=== PATIENT | female | born 1985 | race Caucasian/White ===

== ENCOUNTER → 2016-08-28 | Outpatient (CLI) | payer OTHER ==
[~2016-08-28] MED LIST: CYCL10TA6 PO; FLUO20CA35 PO; GABA-112 PO; METO1TAB55 PO; PRENTAB26 PO
--- NOTE | 2016-08-28 09:27 | DIAGNOSTIC IMAGING REPORT ---
MRI OF THE LUMBAR SPINE WITHOUT CONTRAST CLINICAL HISTORY: Lumbar radiculopathy. COMPARISON STUDY: Lumbar spine CT December 18, 2007. TECHNIQUE: Utilizing a 0.7 Tiffanie open magnet and dedicated coil, multiplanar, multiecho imaging of the lumbar spine was performed without IV contrast. FINDINGS: For purposes of numbering on this exam, the L5-S1 disc space is assigned to axial image 27 of 30. There is a transitional vertebra at the lumbosacral junction which is designated as L5 on this exam. This is partially sacralized. Vertebral body heights are maintained. There is no marrow replacement. The conus terminates at the upper L1 level. Paravertebral soft tissues are unremarkable. No intracanalicular mass or fluid collection is present. L1-2: There is minimal disc bulge, eccentric to the right. The central canal and neural foramen are patent. L2-3: There is minimal disc bulge. There is a central annular tear. The central canal and neural foramen are patent. L3-4: There is minimal disc bulge. The central canal and neural foramen are patent. L4-5: There is minimal disc bulge. The central canal and neural foramen are patent. L5-S1: The central canal and neural foramen are patent. IMPRESSION: 1. Mild multilevel degenerative disc disease of the lumbar spine. Several mild disc bulges with no significant central canal or neural foraminal stenosis. 2. Transitional vertebra at the lumbosacral junction, as described above. Electronically signed by: Momo Crabtree M.D. 08/28/2016 9:25 AM Dictated Date/Time: 08/28/2016 9:17 AM
== END | disposition home or self-care (01) ==
LOC: C.OPENMRI 07:45
PROVIDERS: ATTEND Anesthesiology
DX: M54.16 Radiculopathy, lumbar region (principal)

== ENCOUNTER → 2016-10-09 | Outpatient (CLI) | payer OTHER ==
[2016-10-09 16:49] LABS: URINE APPEARANCE CLOUDY (CLEAR); URINE BILIRUBIN NEG (NEG); URINE COLOR YELLOW; URINE NITRITE NEG (NEG); URINE PH 7.5 (4.5-7.5); UROBILINOGEN NEG (NEG)
[2016-10-09 17:12] LABS: MANUAL MICROSCOPIC REQUIRED? NO; REVIEW REQ? NO
== END | disposition home or self-care (01) ==
LOC: C.LABSPEC 15:56
PROVIDERS: ATTEND Obstetrics & Gynecology
DX: O99.330 Smoking (tobacco) complicating pregnancy, unspecified trimester (principal)

== ENCOUNTER 2016-10-15 16:55 | Emergency (ER) | payer OTHER ==
[~2016-10-15] VITALS: Ht 157.5 cm; Wt 118.1 kg
[~2016-10-15 16:55] MED LIST changes: -METO1TAB55 PO; -PRENTAB26 PO
[2016-10-15 17:03] VITALS: TEMP 36.8; Ht 157.5 cm; Wt 118.1 kg
[2016-10-15] MEDS ORDERED: SODIUM CHLORIDE 0.9% 1000ML 1,000 ML IV STA (17:56)
[2016-10-15] MEDS ORDERED: METOCLOPRAMIDE HCL INJ 5 MG/ML 2 ML VIAL IV STA (17:56)
[2016-10-15 18:23] LABS: BASO % 0.2 %; BASO ABS # 0.02 K/uL (0-0.2); COMPLETE YES; EOS % 2.8 %; HEMATOCRIT 36.3 % (37-47); IG% 0.2 %; LYMPH % 21.7 %; LYMPH ABS # 2.29 K/uL (1.2-3.4); MEAN CELL VOLUME 82.1 fL (80-100); MEAN CORPUSCULAR HEMOGLOBIN 28.7 pg (25-34); MEAN PLATELET VOLUME 10.4 fL (7.4-10.4); MONO % 8.6 %; NEUT % 66.5 %; PLATELET COUNT 224 K/uL (130-400); RED BLOOD COUNT 4.42 M/uL (4.2-5.4); WHITE BLOOD COUNT 10.54 K/uL (4.8-10.8)
[2016-10-15 18:33] LABS: URINE APPEARANCE CLEAR (CLEAR); URINE BILIRUBIN NEG (NEG); URINE COLOR YELLOW; URINE EPITHELIAL CELL AUTO >30 /lpf (0-5); URINE NITRITE NEG (NEG); URINE PH 5.5 (4.5-7.5); UROBILINOGEN NEG (NEG)
[2016-10-15 18:35] LABS: MANUAL MICROSCOPIC REQUIRED? NO; REVIEW REQ? YES
[2016-10-15 18:42] LABS: BLOOD UREA NITROGEN 7 mg/dl (7-18); CREATININE 0.64 mg/dl (0.60-1.20); GLUCOSE 63 mg/dl (70-99)
[2016-10-15 18:43] LABS: ALT/SGPT 22 U/L (12-78); BUN/CREATININE RATIO 10.3 (10-20); CARBON DIOXIDE 24 mmol/L (21-32); CHLORIDE 105 mmol/L (98-107); POTASSIUM 3.8 mmol/L (3.5-5.1); SODIUM 139 mmol/L (136-145)
[2016-10-15 18:45] LABS: ALKALINE PHOSPHATASE 41 U/L (45-117); AST/SGOT 12 U/L (15-37)
--- NOTE | 2016-10-15 19:52 | DIAGNOSTIC IMAGING REPORT ---
ULTRASOUND OF THE PELVIS CLINICAL HISTORY: Pelvic pain. . Nausea. Dizziness. COMPARISON STUDY: Pelvic CT dated 12/18/2007. TECHNIQUE: Real-time, grayscale, and color flow sonography of the pelvis is performed both transabdominally and endovaginally. Images are reviewed in the transverse and longitudinal planes. FINDINGS: Uterus: The gravid uterus is normal in size and echotexture, measuring approximately 8.5 cm in length. Gestation: There is a single live uterine gestation with an estimated heart rate of 166 bpm. The crown-rump length measures 2.96 cm, corresponding to an estimated age of 9 weeks 6 days. Ovaries: The ovaries are normal in size and morphology. The right ovary measures 1.5 x 2.1 x 1.7 cm and the left ovary measures 2.7 x 1.8 x 2.8 cm. A dominant follicle is noted on the left. Normal Doppler waveforms are shown within both ovaries. Pelvis: There is trace free fluid in the cul-de-sac. No concerning adnexal lesion is seen. IMPRESSION: 1. There is a single live uterine gestation with an estimated age of 9 weeks 6 days by crown-rump length measurement. 2. The ovaries are normal in appearance. 3. There is trace nonspecific free fluid in the cul-de-sac. Electronically signed by: Brayan Wilkins M.D. 10/15/2016 7:51 PM Dictated Date/Time: 10/15/2016 7:46 PM
[2016-10-15 20:06] VITALS: BP 125/72; PULSE 65; O2SAT 99
[2016-10-15] MEDS ORDERED: METO1TAB55 PO (21:09)
--- NOTE | 2016-10-15 23:55 | EMERGENCY ROOM VISIT NOTE ---
History Report prepared by Christiane: Sinai Salas Under the Supervision of: Dr. Corrina Leyva D.O. First contact with patient: 17:08 Chief Complaint: ILLNESS Stated Complaint: DIZZY, ABD PAIN, NAUSEA, HEADACHE- 10WKS History of Present Illness The patient is a 31 year old female who presents to the Emergency Room with complaints of persistent left abdominal pain for the last 7 days. She describes the pain as cramping. She has also been experiencing nausea. She has been vomiting for the past 3 days. She is dizzy and states that it feels like the room is spinning. She denies any fever, diarrhea, vaginal bleeding or discharge. She is 10 weeks and her LNMP was on Aug 04. She had a positive home test and was due for an OB appointment today which was cancelled because of the weather. She had spotting and cramping in her lower abdomen earlier in the . She is currently being treated for a Group B strep infection in the urine with a 7 day course of antibiotics. Today was the 4th day of her antibiotics. Source of History: patient Onset: 7 days ago Position: abdomen (left) Quality: cramping Timing: other (persistent) Associated Symptoms: + nausea, + vomiting, No diarrhea, No fevers Note: Pt denies vaginal bleeding or discharge. Review of Systems See HPI for pertinent positives & negatives. A total of 10 systems reviewed and were otherwise negative. Past Medical & Surgical Medical Problems: (1) Traumatic brain injury Family History Blood clots Cancer Diabetes mellitus Hypertension Kidney stones Social History Smoking Status: Former Smoker Alcohol Use: none Marital Status: single Occupation Status: employed Current/Historical Medications Scheduled Metoclopramide Hcl (Reglan), 1 TAB PO TID Allergies Coded Allergies: No Known Allergies (Verified , 10/15/16) Physical Exam Vital Signs Date Time Temp Pulse Resp B/P Pulse Ox O2 Delivery O2 Flow Rate FiO2 10/15/16 20:06 65 14 125/72 99 Room Air 10/15/16 19:00 81 20 98 Room Air 10/15/16 17:03 36.8 74 18 128/81 98 Room Air Physical Exam HEENT: Head - normocephalic and atraumatic Pupils are equal, round, and reactive to light. Extraocular eye muscles are intact, and sclera are anicteric. Nose - moist nasal mucosa without discharge. Mouth - moist buccal mucosa. Oropharynx is nonerythematous and there is no tonsillar exudate or edema noted. Neck: Supple; no JVD, nuchal rigidity, cervical lymphadenopathy. Heart: Regular rate and rhythm. There is a normal S1 and S2 with no murmurs, clicks, or gallops appreciated. Lungs: Clear to auscultation bilaterally with no wheezes, rales, or rhonchi. Abdomen: Soft, tenderness to palpation of LLQ and left of umbilicus, nondistended, with good bowel sounds. There are no palpable pulsatile masses or hepatosplenomegaly. There is no guarding, rigidity, or rebound noted. Extremities: No evidence of cyanosis, clubbing, or edema. There are easily palpable peripheral pulses. Skin: warm and dry with good turgor and no rashes. Medical Decision & Procedures ER Provider Diagnostic Interpretation: Radiology results as stated below per my review and the radiologist's interpretation: ULTRASOUND OF THE PELVIS CLINICAL HISTORY: Pelvic pain. . Nausea. Dizziness. COMPARISON STUDY: Pelvic CT dated 12/18/2007. TECHNIQUE: Real-time, grayscale, and color flow sonography of the pelvis is performed both transabdominally and endovaginally. Images are reviewed in the transverse and longitudinal planes. FINDINGS: Uterus: The gravid uterus is normal in size and echotexture, measuring approximately 8.5 cm in length. Gestation: There is a single live uterine gestation with an estimated heart rate of 166 bpm. The crown-rump length measures 2.96 cm, corresponding to an estimated age of 9 weeks 6 days. Ovaries: The ovaries are normal in size and morphology. The right ovary measures 1.5 x 2.1 x 1.7 cm and the left ovary measures 2.7 x 1.8 x 2.8 cm. A dominant follicle is noted on the left. Normal Doppler waveforms are shown within both ovaries. Pelvis: There is trace free fluid in the cul-de-sac. No concerning adnexal lesion is seen. IMPRESSION: 1. There is a single live uterine gestation with an estimated age of 9 weeks 6 days by crown-rump length measurement. 2. The ovaries are normal in appearance. 3. There is trace nonspecific free fluid in the cul-de-sac. Electronically signed by: Brayan Wilkins M.D. 10/15/2016 7:51 PM Dictated Date/Time: 10/15/2016 7:46 PM Laboratory Results 10/15/16 18:10 Red Blood Count 4.42, Mean Corpuscular Volume 82.1, Mean Corpuscular Hemoglobin 28.7, Mean Corpuscular Hemoglobin Concent 35.0, Mean Platelet Volume 10.4, Neutrophils (%) (Auto) 66.5, Lymphocytes (%) (Auto) 21.7, Monocytes (%) (Auto) 8.6, Eosinophils (%) (Auto) 2.8, Basophils (%) (Auto) 0.2, Neutrophils # (Auto) 7.01, Lymphocytes # (Auto) 2.29, Monocytes # (Auto) 0.91, Eosinophils # (Auto) 0.29, Basophils # (Auto) 0.02 10/15/16 18:10 Test 10/15/16 18:05 10/15/16 18:10 Urine Color YELLOW Urine Appearance CLEAR (CLEAR) Urine pH 5.5 (4.5-7.5) Urine Specific [place] 1.020 (1.000-1.030) Urine Protein NEG (NEG) Urine Glucose (UA) NEG (NEG) Urine Ketones NEG (NEG) Urine Occult Blood NEG (NEG) Urine Nitrite NEG (NEG) Urine Bilirubin NEG (NEG) Urine Urobilinogen NEG (NEG) Urine Leukocyte Esterase TRACE (NEG) Urine WBC (Auto) 1-5 /hpf (0-5) Urine RBC (Auto) 0-4 /hpf (0-4) Urine Hyaline Casts (Auto) 1-5 /lpf (0-5) Urine Epithelial Cells (Auto) >30 /lpf (0-5) Urine Bacteria (Auto) NEG (NEG) Urine Crystals CALCIUM OXALATE (NONE White Blood Count 10.54 K/uL (4.8-10.8) Red Blood Count 4.42 M/uL (4.2-5.4) Hemoglobin 12.7 g/dL (12.0-16.0) Hematocrit 36.3 % (37-47) Mean Corpuscular Volume 82.1 fL (80-100) Mean Corpuscular Hemoglobin 28.7 pg (25-34) Mean Corpuscular Hemoglobin Concent 35.0 g/dl (32-36) Platelet Count 224 K/uL (130-400) Mean Platelet Volume 10.4 fL (7.4-10.4) Neutrophils (%) (Auto) 66.5 % Lymphocytes (%) (Auto) 21.7 % Monocytes (%) (Auto) 8.6 % Eosinophils (%) (Auto) 2.8 % Basophils (%) (Auto) 0.2 % Neutrophils # (Auto) 7.01 K/uL (1.4-6.5) Lymphocytes # (Auto) 2.29 K/uL (1.2-3.4) Monocytes # (Auto) 0.91 K/uL (0.11-0.59) Eosinophils # (Auto) 0.29 K/uL (0-0.5) Basophils # (Auto) 0.02 K/uL (0-0.2) RDW Standard Deviation 40.4 fL (36.4-46.3) RDW Coefficient of Variation 13.3 % (11.5-14.5) Immature Granulocyte % (Auto) 0.2 % Immature Granulocyte # (Auto) 0.02 K/uL (0.00-0.02) Anion Gap 10.0 mmol/L (3-11) Est Creatinine Clear Calc Drug Dose 158.3 ml/min Estimated GFR () 139.8 Estimated GFR (Non- 120.6 BUN/Creatinine Ratio 10.3 (10-20) Calcium Level 10.0 mg/dl (8.5-10.1) Total Bilirubin 0.2 mg/dl (0.2-1) Direct Bilirubin < 0.1 mg/dl (0-0.2) Aspartate Amino Transf (AST/SGOT) 12 U/L (15-37) Alanine Aminotransferase (ALT/SGPT) 22 U/L (12-78) Alkaline Phosphatase 41 U/L (45-117) Total Protein 8.0 gm/dl (6.4-8.2) Albumin 3.7 gm/dl (3.4-5.0) Human Chorionic Gonadotropin, Quant 32006 mIU/mL Laboratory results per my review. Medications Administered Medications (Trade) Dose Ordered Sig/Tc Route Start Time Stop Time Status Last Admin Dose Admin Sodium Chloride (Nss 1000ml) 1,000 ml @ 999 mls/hr Q1H1M STAT IV 10/15/16 17:56 10/15/16 18:56 DC 10/15/16 18:10 999 MLS/HR Metoclopramide HCl (Reglan Inj) 10 mg NOW STAT IV 10/15/16 17:56 10/15/16 17:59 DC 10/15/16 18:10 10 MG Procedure Medications: NSS 1000 ml @ 999 mls/hr IV, Reglan Inj 10 mg IV. ED Course 1752: The patient was evaluated in room B11. A complete history and physical examination were performed. Nursing notes and previous electronic medical records were reviewed. IV lock was established and labs were drawn as above. 1755: NSS 1000 ml @ 999 mls/hr IV, Reglan Inj 10 mg IV. The patient went for a pelvic ultrasound as described above. 2028: I reevaluated the patient. She feels better. She was able to drink liquids without difficulty. I discussed the results and treatment plan with her. She verbalized understanding and agreement. She will be discharged home. Medical Decision The patient is a 31 year old female who presents to the ED with left abdominal pain. Differential diagnosis includes normal , ectopic , diverticulitis, ureteral colic, hyperemesis gravidarum. Labs: Normal WBC count, stable H & H, glucose 63, normal renal function, normal LFTs, quantitative HCG 24143, urinalysis had calcium oxylate crystals, no blood , trace leukocyte esterase. The patient felt much better after receiving the IV normal saline and Reglan. She was able to drink without any difficulty. She felt reassured by the ultrasound. The patient doesn't calcium oxalate crystals in her urine but no obvious blood. I've asked to follow-up with her payment poster in the next week. She should keep herself well-hydrated and taking a bland diet. Impression Primary Impression: First trimester Additional Impression: Vomiting Scribe Attestation The scribe's documentation has been prepared under my direction and personally reviewed by me in its entirety. I confirm that the note above accurately reflects all work, treatment, procedures, and medical decision making performed by me. Departure Information Dispostion Home / Self-Care Prescriptions Metoclopramide Hcl (REGLAN) 10 Mg Tab 1 TAB PO TID for 30 Days, #15 TAB Prov: Corrina Leyva D.O. 10/15/16 Referrals Lisandro Cobos M.D. (PCP) Forms HOME CARE DOCUMENTATION FORM, IMPORTANT VISIT INFORMATION, WORK / SCHOOL INSTRUCTIONS Patient Instructions My [facility] Additional Instructions Rest. Take plenty of clear liquids and a bland diet. Reglan - 1 tab. every 8 hours for nausea follow up with OB Problem Qualifiers
== END 2016-10-15 21:30 | disposition home or self-care (01) ==
LOC: C.EDB 16:59
DX: O21.9 Vomiting of pregnancy, unspecified (principal); Z3A.10 10 weeks gestation of pregnancy; Z87.820 Personal history of traumatic brain injury; Z87.891 Personal history of nicotine dependence; Z83.3 Family history of diabetes mellitus; Z82.49 Family history of ischemic heart disease and other diseases of the circulatory system; Z84.1 Family history of disorders of kidney and ureter

== ENCOUNTER → 2016-10-29 | Outpatient (CLI) | payer OTHER ==
[~2016-10-29] MED LIST changes: -CYCL10TA6 PO; -FLUO20CA35 PO; -GABA-112 PO; +METO1TAB55 PO; +PRENTAB26 PO
== END | disposition home or self-care (01) ==
LOC: C.PAPS 09:05
PROVIDERS: ATTEND Obstetrics & Gynecology
DX: Z12.4 Encounter for screening for malignant neoplasm of cervix (principal)

== ENCOUNTER → 2016-10-29 | Outpatient (CLI) | payer OTHER ==
[2016-11-01 11:40] LABS: CHLAMYDIA TRACH RNA*** NOT DETECTED (NOT DETECTED); GC (NEIS GONORRHOEAE)RNA** NOT DETECTED (NOT DETECTED)
== END | disposition home or self-care (01) ==
LOC: C.LAB1850 13:57
PROVIDERS: ATTEND Obstetrics & Gynecology
DX: Z34.01 Encounter for supervision of normal first pregnancy, first trimester (principal)

== ENCOUNTER → 2016-11-26 | Outpatient (CLI) | payer OTHER ==
[~2016-11-26] MED LIST changes: -METO1TAB55 PO
[2016-11-26 18:39] LABS: GTGD 50 Grams
== END | disposition home or self-care (01) ==
LOC: C.LAB1850 15:00
PROVIDERS: ATTEND Obstetrics & Gynecology
DX: Z34.02 Encounter for supervision of normal first pregnancy, second trimester (principal)

== ENCOUNTER → 2017-02-18 | Outpatient (CLI) | payer OTHER ==
[2017-02-18 16:32] LABS: GTGD 50 Grams
[2017-02-18 16:36] LABS: HEMATOCRIT 33.2 % (37-47)
== END | disposition home or self-care (01) ==
LOC: C.LAB1850 15:53
PROVIDERS: ATTEND Obstetrics & Gynecology
DX: Z34.03 Encounter for supervision of normal first pregnancy, third trimester (principal)

== ENCOUNTER → 2017-02-18 | Outpatient (CLI) | payer OTHER ==
[2017-02-18 18:45] LABS: URINE APPEARANCE CLEAR (CLEAR); URINE BILIRUBIN NEG (NEG); URINE COLOR YELLOW; URINE EPITHELIAL CELL AUTO >30 /lpf (0-5); URINE NITRITE NEG (NEG); URINE PH 6.5 (4.5-7.5); URINE SPECIFIC GRAVITY 1.021 (1.000-1.030); UROBILINOGEN NEG (NEG)
[2017-02-18 18:47] LABS: MANUAL MICROSCOPIC REQUIRED? NO; REVIEW REQ? NO
== END | disposition home or self-care (01) ==
LOC: C.LABSPEC 17:39
PROVIDERS: ATTEND Obstetrics & Gynecology
DX: Z34.03 Encounter for supervision of normal first pregnancy, third trimester (principal)

== ENCOUNTER → 2017-02-27 | Outpatient (CLI) | payer OTHER | END | disposition home or self-care (01) | LOC: C.CPL 11:11 | PROVIDERS: ATTEND Obstetrics & Gynecology | DX: Z34.02 Encounter for supervision of normal first pregnancy, second trimester (principal) ==

== ENCOUNTER 2017-03-13 10:56 | Outpatient (CLI) | payer OTHER ==
[~2017-03-13] VITALS: Ht 162.6 cm; Wt 120.0 kg
[2017-03-13] MEDS ORDERED: LACTATED RINGER'S 1000ML 1,000 ML IV SCH (11:30)
[2017-03-13 11:32] VITALS: Ht 162.6 cm; Wt 120.0 kg
[2017-03-13] MEDS ORDERED: PRENTAB26 PO (11:32)
[2017-03-13] MEDS ORDERED: BETAMETH SOD PHOS/ACETATE IA 6 MG/ML IM ONE (11:45)
[2017-03-13] MEDS ORDERED: SODIUM CHLORIDE 0.9% IV SCH (12:00)
[2017-03-13] MEDS ORDERED: ERYTHROMYCIN IV 250 MG in SODIUM CHLORIDE 0.9% 250ML 250 ML IV SCH (12:00)
[2017-03-13] MEDS ORDERED: AMPICILLIN IV SCH (12:00)
== END 2017-03-13 13:05 | disposition short-term general hospital (02) ==
LOC: C.OPB 10:56 → C.LD 10:56 → UNDOADMIN 11:32 → C.OPB 11:32
PROVIDERS: ATTEND Obstetrics & Gynecology
DX: O60.03 Preterm labor without delivery, third trimester (principal); Z3A.31 31 weeks gestation of pregnancy

== ENCOUNTER → 2017-05-22 | Outpatient (CLI) | payer OTHER ==
[2017-05-22 16:05] LABS: PREG INTERNAL NEGATIVE QC NEG CLEAR BACKGROUND; PREG INTERNAL POSITIVE QC POS CONTROL LINE
== END | disposition home or self-care (01) ==
LOC: C.LAB1850 15:22
PROVIDERS: ATTEND Obstetrics & Gynecology
DX: Z39.2 Encounter for routine postpartum follow-up (principal)

== ENCOUNTER 2018-03-23 16:25 | Emergency (ER) | payer OTHER ==
[~2018-03-23] VITALS: Ht 157.5 cm; Wt 122.5 kg
[~2018-03-23 16:25] MED LIST changes: +ESCI1TAB10 PO; +FERR1TAB23 PO; +GABA-1693 PO; +MULTTAB58 PO; -PRENTAB26 PO; +TRAM-10 PO
[2018-03-23 16:31] VITALS: TEMP 36.8; Ht 157.5 cm; Wt 122.5 kg
[2018-03-23] MEDS ORDERED: KETOROLAC TROMETHAMINE 30 MG/ML VIAL IV STA (16:42)
[2018-03-23] MEDS ORDERED: SODIUM CHLORIDE 0.9% 1000ML 1,000 ML IV STA (16:42)
[2018-03-23 17:04] LABS: BASO % 0.2 %; BASO ABS # 0.02 K/uL (0-0.2); EOS % 3.1 %; EOS ABS # 0.34 K/uL (0-0.5); HEMATOCRIT 41.3 % (37-47); HEMOGLOBIN 13.9 g/dL (12.0-16.0); IG# 0.03 K/uL (0.00-0.02); LYMPH % 25.3 %; LYMPH ABS # 2.76 K/uL (1.2-3.4); MEAN CELL VOLUME 85.9 fL (80-100); MEAN CORPUSCULAR HEMOGLOBIN 28.9 pg (25-34); MEAN CORPUSCULAR HGB CONC 33.7 g/dl (32-36); MEAN PLATELET VOLUME 10.7 fL (7.4-10.4); MONO ABS # 0.76 K/uL (0.11-0.59); NEUT % 64.1 %; NEUT ABS # 7.01 K/uL (1.4-6.5); PLATELET COUNT 224 K/uL (130-400); RED CELL DISTRIBUTION WIDTH CV 13.8 % (11.5-14.5); RED CELL DISTRIBUTION WIDTH SD 43.3 fL (36.4-46.3); WHITE BLOOD COUNT 10.92 K/uL (4.8-10.8)
--- NOTE | 2018-03-23 17:36 | EMERGENCY ROOM VISIT NOTE ---
History Report prepared by Christiane: Rose Lorenzo Under the Supervision of: Dr. Sreekanth Tamez M.D. First contact with patient: 16:34 Chief Complaint: NECK PAIN Stated Complaint: LIGHTHEADED WEAKNESS NECK PAIN STIFF History of Present Illness The patient is a 32 year old female who presents to the Emergency Room with complaints of intermittent waves of lightheadedness beginning 4 days ago. The patient notes movement worsens her lightheadedness. She states she began experiencing shooting pains down her arms and legs, worse in her L side, 2 days ago. The patient notes her legs feel weak and she feels as though she is about to trip while walking. She states she is experiencing all-over neck stiffness and tightness. She denies fevers, headaches, vomiting, recent falls, weakness in her arms, or rashes. The patient reports she is feeling slightly sensitive to light, beginning today. She also notes some nausea. The patient states Tylenol did not relieve her symptoms. She notes chronic low back pain following a previous T3 fracture, as well as double hip fracture and C5, C6 repairs. The patient reports a history of TBI in 2010, and denies ever experiencing her current symptoms in the past. Source of History: patient Onset: 4 days ago Position: head Quality: other (dizziness) Timing: intermittent Modifying Factors (Worsening): movement Associated Symptoms: + neck pain (stiffness, tightness), + nausea, No fevers , No headache, No rash Note: Associated symptoms: shooting pains down arms and legs, weakness of legs. Denies : numbness in arms. Review of Systems See HPI for pertinent positives and negatives. A total of ten systems were reviewed and were otherwise negative. Past Medical & Surgical Medical Problems: (1) premature rupture of membranes (PPROM) with unknown onset of labor (2) Traumatic brain injury Family History Blood clots Cancer Diabetes mellitus Hypertension Kidney stones Social History Smoking Status: Current Some Day Smoker Alcohol Use: none Marital Status: single Occupation Status: employed Current/Historical Medications Scheduled Escitalopram Oxalate (Lexapro), 20 MG PO QAM Ferrous Sulfate (Iron), 325 MG PO QAM Gabapentin (Neurontin), 100 MG PO HS Gabapentin (Neurontin), 1 CAP PO TID Multiple Vitamin (Multivitamin), 1 TAB PO QAM Scheduled PRN Ibuprofen (Motrin), 600 MG PO TID PRN for Pain Allergies Coded Allergies: No Known Allergies (Verified , 12/30/17) Physical Exam Vital Signs Date Time Temp Pulse Resp B/P (MAP) Pulse Ox O2 Delivery O2 Flow Rate FiO2 03/23/18 18:59 74 22 140/73 98 03/23/18 17:44 77 03/23/18 17:38 81 21 155/77 99 Room Air 03/23/18 17:38 99 Room Air 03/23/18 16:31 36.8 88 18 165/95 100 Room Air Physical Exam GENERAL: Awake, alert, well-appearing, in no distress HENT: Normocephalic, atraumatic. Oropharynx unremarkable. EYES: Normal conjunctiva. Sclera non-icteric. EOMI, PERRL NECK: Supple. No nuchal rigidity. RESPIRATORY: Clear to auscultation. No wheezes. Normal respiratory effort. CARDIAC: Normal rate. Normal rhythm. Extremities warm and well perfused. GI: Soft, non-distended. No tenderness to palpation. No rebound or guarding. No masses. RECTAL: Deferred. MUSCULOSKELETAL: Atraumatic. Chest examination reveals no tenderness. LOWER EXTREMITIES: Calves are equal size bilaterally and non-tender. No edema NEURO: Normal sensorium. No sensory or motor deficits noted. No facial droop. Normal 2+ bilateral patellar reflexes. SKIN: Warm and dry. No rash or jaundice noted. Medical Decision & Procedures ER Provider Diagnostic Interpretation: Radiology results as stated below per my review and radiologist interpretation: HEAD WITHOUT CONTRAST (CT) CLINICAL HISTORY: 32 years-old Female presenting with lightheaded, neck pain, hx acid. TECHNIQUE: Multidetector CT imaging of the head was performed without the use of intravenous contrast. IV contrast: None. A dose lowering technique was used consistent with the principles of ALARA (as low as reasonably achievable). COMPARISON: 11/08/2011. CT DOSE (mGy.cm): The estimated cumulative dose is 1779.73 mGy.cm. FINDINGS: Outpatient Pharmacy Manager topogram: Unremarkable. Ventricles and sulci normal in size. Brain parenchyma normal in appearance with preserved eugene-white differentiation. No mass effect or midline shift. No hemorrhage or acute territorial infarct. No extra-axial fluid collection. Paranasal sinuses and mastoid air cells clear. Calvarium intact. IMPRESSION: 1. No acute intracranial abnormality. Electronically signed by: John García M.D. 03/23/2018 5:37 PM Dictated Date/Time: 03/23/2018 5:35 PM CERVICAL SPINE W/O CLINICAL HISTORY: 32 years-old Female presenting with lightheadedness, neck pain, hx acid. TECHNIQUE: Multidetector CT of the cervical spine was performed without the use of intravenous contrast. IV contrast: None. A dose lowering technique was used consistent with the principles of ALARA (as low as reasonably achievable). COMPARISON: 11/08/2011. CT DOSE (mGy.cm): The estimated cumulative dose is 1779.73. FINDINGS: Outpatient Pharmacy Manager topogram: Unremarkable. Straightening of normal cervical lordosis, possibly positional. Postsurgical changes of anterior cervical discectomy and fusion of C6-7. No hardware complication is apparent. Nonoperative levels demonstrate normal vertebral body heights and alignment. Intervertebral disc heights preserved with only minimal height loss suggested at C5-6. No acute fracture or subluxation. Mild posterior bony spurring at C5-6 mildly narrows the spinal canal more eccentrically along the right lateral recess. Otherwise no osseous spinal canal narrowing. Osseous neural foraminal narrowing noted on the left at C5-6. Skull base intact. Lung apices clear. Paraspinal soft tissues within normal limits. Likely reactive lymph nodes at the angles of the mandible. IMPRESSION: 1. No acute osseous injury of the cervical spine. 2. Postsurgical changes of anterior cervical discectomy and fusion of C6-7. No hardware complication. 3. Adjacent level degenerative change at C5-6 with mild effacement of the right lateral recess of the spinal canal and osseous neural foraminal narrowing on the left, worsened from the prior exam. Electronically signed by: John García M.D. 03/23/2018 5:43 PM Dictated Date/Time: 03/23/2018 5:37 PM Laboratory Results 03/23/18 16:45 Red Blood Count 4.81, Mean Corpuscular Volume 85.9, Mean Corpuscular Hemoglobin 28.9, Mean Corpuscular Hemoglobin Concent 33.7, Mean Platelet Volume 10.7, Neutrophils (%) (Auto) 64.1, Lymphocytes (%) (Auto) 25.3, Monocytes (%) (Auto) 7.0, Eosinophils (%) (Auto) 3.1, Basophils (%) (Auto) 0.2, Neutrophils # (Auto) 7.01, Lymphocytes # (Auto) 2.76, Monocytes # (Auto) 0.76, Eosinophils # (Auto) 0.34, Basophils # (Auto) 0.02 03/23/18 16:45 Test 03/23/18 16:45 03/23/18 17:20 White Blood Count 10.92 K/uL (4.8-10.8) Red Blood Count 4.81 M/uL (4.2-5.4) Hemoglobin 13.9 g/dL (12.0-16.0) Hematocrit 41.3 % (37-47) Mean Corpuscular Volume 85.9 fL (80-100) Mean Corpuscular Hemoglobin 28.9 pg (25-34) Mean Corpuscular Hemoglobin Concent 33.7 g/dl (32-36) Platelet Count 224 K/uL (130-400) Mean Platelet Volume 10.7 fL (7.4-10.4) Neutrophils (%) (Auto) 64.1 % Lymphocytes (%) (Auto) 25.3 % Monocytes (%) (Auto) 7.0 % Eosinophils (%) (Auto) 3.1 % Basophils (%) (Auto) 0.2 % Neutrophils # (Auto) 7.01 K/uL (1.4-6.5) Lymphocytes # (Auto) 2.76 K/uL (1.2-3.4) Monocytes # (Auto) 0.76 K/uL (0.11-0.59) Eosinophils # (Auto) 0.34 K/uL (0-0.5) Basophils # (Auto) 0.02 K/uL (0-0.2) RDW Standard Deviation 43.3 fL (36.4-46.3) RDW Coefficient of Variation 13.8 % (11.5-14.5) Immature Granulocyte % (Auto) 0.3 % Immature Granulocyte # (Auto) 0.03 K/uL (0.00-0.02) Anion Gap 8.0 mmol/L (3-11) Est Creatinine Clear Calc Drug Dose 144.6 ml/min Estimated GFR () 132.5 Estimated GFR (Non- 114.3 BUN/Creatinine Ratio 10.1 (10-20) Calcium Level 9.1 mg/dl (8.5-10.1) Magnesium Level 2.0 mg/dl (1.8-2.4) Total Bilirubin 0.1 mg/dl (0.2-1) Direct Bilirubin < 0.1 mg/dl (0-0.2) Aspartate Amino Transf (AST/SGOT) 24 U/L (15-37) Alanine Aminotransferase (ALT/SGPT) 47 U/L (12-78) Alkaline Phosphatase 49 U/L (45-117) Total Protein 8.5 gm/dl (6.4-8.2) Albumin 4.0 gm/dl (3.4-5.0) Thyroid Stimulating Hormone (TSH) 1.100 uIu/ml (0.300-4.500) Human Chorionic Gonadotropin, Qual NEG (NEG) Urine Color YELLOW Urine Appearance CLOUDY (CLEAR) Urine pH 6.5 (4.5-7.5) Urine Specific [place] 1.015 (1.000-1.030) Urine Protein NEG (NEG) Urine Glucose (UA) NEG (NEG) Urine Ketones NEG (NEG) Urine Occult Blood NEG (NEG) Urine Nitrite NEG (NEG) Urine Bilirubin NEG (NEG) Urine Urobilinogen NEG (NEG) Urine Leukocyte Esterase TRACE (NEG) Urine WBC (Auto) 1-5 /hpf (0-5) Urine RBC (Auto) 0-4 /hpf (0-4) Urine Hyaline Casts (Auto) 1-5 /lpf (0-5) Urine Epithelial Cells (Auto) >30 /lpf (0-5) Urine Bacteria (Auto) NEG (NEG) Laboratory results reviewed by me Medications Administered Medications (Trade) Dose Ordered Sig/Tc Route Start Time Stop Time Status Last Admin Dose Admin Sodium Chloride 1,000 ml @ 999 mls/hr Q1H1M STAT IV 03/23/18 16:42 03/23/18 17:42 DC 03/23/18 17:10 999 MLS/HR Ketorolac Tromethamine (Toradol Inj) 15 mg NOW STAT IV 03/23/18 16:42 03/23/18 16:45 DC 03/23/18 17:10 15 MG ECG Per My Interpretation Indication: weakness Rate (beats per minute): 74 Rhythm: normal sinus Findings: other (No ST elevation. Nonspecific inferior T wave changes ) Comparison ECG Date: 05/23/16 Change: Nonspecific inferior T wave changes are new. ED Course 1631: The patient was evaluated in room B9. A complete history and physical exam was performed. 1642: Ordered Toradol Inj 15 mg IV, Sodium Chloride 1000 ml @ 999 mls/hr IV 1826: I reevaluated the patient. She is feeling much better. Discussed results and discharge instructions: she verbalized understanding and agreement. The patient is ready for discharge. Medical Decision Etiologies such as benign positional vertigo, dehydration, hypovolemia, anemia, tumor, infection, hypoglycemia, electrolyte abnormalities, cardiac sources, intracerebral event, toxicologic, neurologic, as well as others were entertained. 32-year-old female presenting with neck pain for several days fuzzy feeling her head and dizziness intermittently for the past 5 days. No headache and doubt acute intracranial bleed. Doubt meningitis. Seems less consistent with vertigo. Could have a small migraine component. States intermittently she has some shooting pain in her left arm and her legs. No urinary symptoms. Intact reflexes. No saddle anesthesia. Baseline back pain unchanged. Doubt cauda equina syndrome. Reassuring neurological exam here. Basic labs were obtained here. Given her significant surgical history in her neck a CT of the head and the cervical spine were completed. CT is unremarkable for acute pathology; there is evidence of some foramen narrowing likely causing some radicular symptoms. Likely this is more radicular to her neck pain and back pain causing her symptomatologies. Has chronic lower back issues and recommended for both her neck and her back she follow-up as an outpatient. Will trial a course of NSAIDs in addition to increasing her gabapentin. Discussed return precautions. Feel she is stable for discharge. She is feeling improved. Medication Reconcilliation Current Medication List: was personally reviewed by me Blood Pressure Screening Patient's blood pressure: Elevated blood pressure Blood pressure disposition: Elevated BP felt to be situational Impression Primary Impression: Cervical radicular pain Additional Impression: Weakness generalized Scribe Attestation The scribe's documentation has been prepared under my direction and personally reviewed by me in its entirety. I confirm that the note above accurately reflects all work, treatment, procedures, and medical decision making performed by me. Departure Information Dispostion Home / Self-Care Prescriptions Ibuprofen (Motrin) 600 Mg Tab 600 MG PO TID Y for Pain, #20 TAB With Food Prov: Sreekanth Tamez M.D. 03/23/18 Gabapentin (Neurontin) 100 Mg Cap 1 CAP PO TID for 21 Days, #63 CAP 0 Refills Prov: Sreekanth Tamez M.D. 03/23/18 Referrals Lisandro Cobos M.D. (PCP) Forms HOME CARE DOCUMENTATION FORM, IMPORTANT VISIT INFORMATION, WORK / SCHOOL INSTRUCTIONS Patient Instructions My [facility] [place] Additional Instructions Please maintain good hydration. Utilize prescribed medications to help with her symptoms. Would recommend follow-up with your regular doctor in the next week. Also follow-up with orthopedic spine doctor (Dr. Gonzalez) for long-term spine care in next 2-3 weeks. If you have new concerns or change or worsening of symptoms please return here for reevaluation. Increase her gabapentin 200 mg 3 times a day. Utilize the prescribed Motrin to help with your symptoms. Problem Qualifiers
[2018-03-23 17:38] VITALS: O2SAT 99
--- NOTE | 2018-03-23 17:45 | DIAGNOSTIC IMAGING REPORT ---
CERVICAL SPINE W/O CLINICAL HISTORY: 32 years-old Female presenting with lightheadedness, neck pain, hx acid. TECHNIQUE: Multidetector CT of the cervical spine was performed without the use of intravenous contrast. IV contrast: None. A dose lowering technique was used consistent with the principles of ALARA (as low as reasonably achievable). COMPARISON: 11/08/2011. CT DOSE (mGy.cm): The estimated cumulative dose is 1779.73. FINDINGS: Emergency Veterinarian topogram: Unremarkable. Straightening of normal cervical lordosis, possibly positional. Postsurgical changes of anterior cervical discectomy and fusion of C6-7. No hardware complication is apparent. Nonoperative levels demonstrate normal vertebral body heights and alignment. Intervertebral disc heights preserved with only minimal height loss suggested at C5-6. No acute fracture or subluxation. Mild posterior bony spurring at C5-6 mildly narrows the spinal canal more eccentrically along the right lateral recess. Otherwise no osseous spinal canal narrowing. Osseous neural foraminal narrowing noted on the left at C5-6. Skull base intact. Lung apices clear. Paraspinal soft tissues within normal limits. Likely reactive lymph nodes at the angles of the mandible. IMPRESSION: 1. No acute osseous injury of the cervical spine. 2. Postsurgical changes of anterior cervical discectomy and fusion of C6-7. No hardware complication. 3. Adjacent level degenerative change at C5-6 with mild effacement of the right lateral recess of the spinal canal and osseous neural foraminal narrowing on the left, worsened from the prior exam. Electronically signed by: John García M.D. 03/23/2018 5:43 PM Dictated Date/Time: 03/23/2018 5:37 PM
[2018-03-23 18:12] LABS: ALKALINE PHOSPHATASE 49 U/L (45-117); ALT/SGPT 47 U/L (12-78); AST/SGOT 24 U/L (15-37); BLOOD UREA NITROGEN 7 mg/dl (7-18); CALCIUM 9.1 mg/dl (8.5-10.1); CARBON DIOXIDE 24 mmol/L (21-32); CREATININE 0.71 mg/dl (0.60-1.20); GLUCOSE 77 mg/dl (70-99); POTASSIUM 3.8 mmol/L (3.5-5.1); SODIUM 140 mmol/L (136-145); TOTAL PROTEIN 8.5 gm/dl (6.4-8.2)
[2018-03-23] MEDS ORDERED: IBUP600T44 PO (18:44)
[2018-03-23] MEDS ORDERED: NRN/100 PO (18:44)
[2018-03-23 18:59] VITALS: BP 140/73; PULSE 74; O2SAT 98
== END 2018-03-23 18:59 | disposition home or self-care (01) ==
LOC: C.EDB 16:28
DX: M54.12 Radiculopathy, cervical region (principal); R53.1 Weakness; R42 Dizziness and giddiness; R11.0 Nausea; Z79.899 Other long term (current) drug therapy; Z87.820 Personal history of traumatic brain injury; Z87.828 Personal history of other (healed) physical injury and trauma; F17.200 Nicotine dependence, unspecified, uncomplicated